=== PATIENT | female | born 1940 | race Caucasian/White ===

== ENCOUNTER 2018-10-12 09:49 | Observation (INO) | payer MEDICARE, OTHER ==
[~2018-10-12] VITALS: Ht 160 cm; Wt 47.6 kg
[2018-10-12] MEDS ORDERED: NS IV 1000 ML 1,000 ML IV STA (10:16)
[2018-10-12 10:21] LABS: HEMATOCRIT 37 % (35-52); HEMOGLOBIN 12.3 G/DL (11.5-16.0); MEAN CORPUSCULAR HEMOGLOBIN 31 PG (25-34); MEAN CORPUSCULAR VOLUME 93 FL (80-99)
[2018-10-12 10:22] LABS: BASOPHILS % (AUTO) 1 % (0-10); EOSINOPHILS # (AUTO) 0.1 10^3/uL (0.0-0.3); EOSINOPHILS % (AUTO) 1 % (0-10); LYMPHOCYTES # (AUTO) 0.7 X 10^3 (1.0-4.0); LYMPHOCYTES % (AUTO) 12 % (12-44); MEAN CORPUSCULAR HGB CONC 33 G/DL (32-36); MEAN PLATELET VOLUME 9.9 FL (7.4-10.4); MONOCYTES # (AUTO) 0.4 X 10^3 (0.0-1.0); MONOCYTES % (AUTO) 7 % (0-12); NEUTROPHILS # (AUTO) 4.7 X 10^3 (1.8-7.8); NEUTROPHILS % (AUTO) 79 % (42-75); PLATELET COUNT 243 10^3/uL (130-400); RED CELL DISTRIBUTION WIDTH 13.7 % (10.0-14.5)
--- NOTE | 2018-10-12 10:22 | ED General ---
General Chief Complaint: Dizziness/Syncope Stated Complaint: WEAK, CONFUSED Source of Information: Patient, EMS History of Present Illness Date Seen by Provider: Oct 12, 2018 Time Seen by Provider: 09:49 Initial Comments 78-year-old female presenting with complaints of dizziness and weakness. She states that she has not been eating or drinking well for several days. She felt like she was too weak to get up and walk today. She lives at [facility] and is in assisted living there. She told the staff that she was too weak to get up and felt that her vision was blurred. They gave her part of a protein bar and some water to drink. By the time she arrived to the emergency department by EMS she was starting to feel better. She still felt like her legs were both weak. She does have chronic swelling in her legs. She denies having pain anywhere. She states that she does have burning to her urine at times. She has no shortness of breath. She cannot tell me when her last bowel movement was. She cannot tell me when she last ate other than the bite of the protein bar just prior to coming to the emergency department Allergies and Home Medications Allergies Coded Allergies: No Known Drug Allergies (Unverified , 10/12/18) Patient Home Medication List Home Medication List Reviewed: Yes Review of Systems Review of Systems Constitutional: No chills; dizziness; No fever; malaise, weakness EENTM: blurred vision (now resolved), other ("cotton mouth" and dry mouth symptoms this am); No ear discharge, No double vision, No eye pain, No hoarseness, No mouth pain, No mouth swelling, No epistaxis, No nose congestion, No throat pain, No throat swelling Respiratory: No cough, No dyspnea on exertion, No short of breath Cardiovascular: No chest pain; edema (chronic); No palpitations Gastrointestinal: No abdominal pain; loss of appetite (chronic issue); No nausea, No vomiting Genitourinary: dysuria (intermittent) Musculoskeletal: No back pain; muscle weakness (bilateral legs) Skin: No change in color Psychiatric/Neurological: Anxiety Hematologic/Lymphatic: Anemia (chronic) Past Ezuigdu-Yznosi-Cquedr Hx Past Med/Social Hx: Reviewed Nursing Past Med/Soc Hx Patient Social History Recent Foreign Travel: No Contact w/Someone Who Travel: No Past Medical History Surgeries: No Dementia (mild) Physical Exam Vital Signs Vital Signs - First Documented 10/12/18 10:17 Temp 98.8 Pulse 88 Resp 21 B/P (MAP) 150/79 (102) Pulse Ox 96 O2 Delivery Room Air Capillary Refill : Height, Weight, BMI Height: '" Weight: lbs. oz. kg; BMI Method: General Appearance: No Apparent Distress, Thin HEENT: PERRL/EOMI, Other (dry mucuous membranes) Neck: Full Range of Motion, Normal Inspection, Non Tender, Supple Respiratory: Chest Non Tender, Lungs Clear, Normal Breath Sounds Cardiovascular: Regular Rate, Rhythm, Normal Peripheral Pulses Gastrointestinal: Normal Bowel Sounds, No Pulsatile Mass, Non Tender, Soft Extremity: Normal Capillary Refill, Normal Inspection, Normal Range of Motion, Non Tender Neurologic/Psychiatric: Alert, Oriented x3, No Motor/Sensory Deficits Skin: Normal Color, Warm/Dry Progress/Results/Core Measures Suspected Sepsis SIRS Temperature: Pulse: Respiratory Rate: Laboratory Tests 10/12/18 10:15: White Blood Count 6.0 Blood Pressure / Mean: Laboratory Tests 10/12/18 10:15: Creatinine 0.88, Platelet Count 243, Total Bilirubin 0.7 Results/Orders Lab Results Laboratory Tests Test 10/12/18 10:15 10/12/18 10:28 Range/Units White Blood Count 6.0 4.3-11.0 10^3/uL Red Blood Count 3.98 L 4.35-5.85 10^6/uL Hemoglobin 12.3 11.5-16.0 G/DL Hematocrit 37 35-52 % Mean Corpuscular Volume 93 80-99 FL Mean Corpuscular Hemoglobin 31 25-34 PG Mean Corpuscular Hemoglobin Concent 33 32-36 G/DL Red Cell Distribution Width 13.7 10.0-14.5 % Platelet Count 243 130-400 10^3/uL Mean Platelet Volume 9.9 7.4-10.4 FL Neutrophils (%) (Auto) 79 H 42-75 % Lymphocytes (%) (Auto) 12 12-44 % Monocytes (%) (Auto) 7 0-12 % Eosinophils (%) (Auto) 1 0-10 % Basophils (%) (Auto) 1 0-10 % Neutrophils # (Auto) 4.7 1.8-7.8 X 10^3 Lymphocytes # (Auto) 0.7 L 1.0-4.0 X 10^3 Monocytes # (Auto) 0.4 0.0-1.0 X 10^3 Eosinophils # (Auto) 0.1 0.0-0.3 10^3/uL Basophils # (Auto) 0.0 0.0-0.1 10^3/uL Sodium Level 143 135-145 MMOL/L Potassium Level 4.1 3.6-5.0 MMOL/L Chloride Level 101 98-107 MMOL/L Carbon Dioxide Level 27 21-32 MMOL/L Anion Gap 15 H 5-14 MMOL/L Blood Urea Nitrogen 21 H 7-18 MG/DL Creatinine 0.88 0.60-1.30 MG/DL Estimat Glomerular Filtration Rate > 60 BUN/Creatinine Ratio 24 Glucose Level 122 H 70-105 MG/DL Calcium Level 9.5 8.5-10.1 MG/DL Corrected Calcium 9.3 8.5-10.1 MG/DL Total Bilirubin 0.7 0.1-1.0 MG/DL Aspartate Amino Transf (AST/SGOT) 23 5-34 U/L Alanine Aminotransferase (ALT/SGPT) 22 0-55 U/L Alkaline Phosphatase 57 40-136 U/L Troponin I < 0.30 <0.30 NG/ML Pro-B-Type Natriuretic Peptide 77.8 H <75.0 PG/ML Total Protein 7.0 6.4-8.2 GM/DL Albumin 4.2 3.2-4.5 GM/DL Urine Color YELLOW Urine Clarity SLT CLOUDY Urine pH 7.5 5-9 Urine Specific [place] 1.015 L 1.016-1.022 Urine Protein NEGATIVE NEGATIVE Urine Glucose (UA) NEGATIVE NEGATIVE Urine Ketones TRACE H NEGATIVE Urine Nitrite NEGATIVE NEGATIVE Urine Bilirubin NEGATIVE NEGATIVE Urine Urobilinogen 0.2 NORMAL MG/DL Urine Leukocyte Esterase NEGATIVE NEGATIVE Urine RBC (Auto) NEGATIVE NEGATIVE Urine RBC RARE /HPF Urine WBC RARE /HPF Urine Squamous Epithelial Cells RARE /HPF Urine Crystals PRESENT H /LPF Urine Amorphous Sediment MOD GREGORIO PHOSPHATE H /LPF Urine Bacteria MODERATE H /HPF Urine Casts NONE /LPF Urine Mucus NONE /LPF Urine Culture Indicated YES My Orders Orders - KHUSHBU ELLINGTON MD Iv/Invasive Line Insertion .IV start (10/12/18 10:11) Cbc With Automated Diff (10/12/18 10:11) Comprehensive Metabolic Panel (10/12/18 10:11) Ua Culture If Indicated (10/12/18 10:11) Straight Cath For Spec.-Adult (10/12/18 10:11) Ekg Tracing (10/12/18 10:11) Troponin I (10/12/18 10:11) Probnp Fs (10/12/18 10:11) Ns Iv 1000 Ml (Sodium Chloride 0.9%) (10/12/18 10:16) Urine Culture (10/12/18 10:28) Ekg Tracing (10/12/18 11:00) Ct Head Wo (10/12/18 11:15) Chest 1 View Ap/Pa Only (10/12/18 11:15) Ceftriaxone For Iv Use (Rocephin For I (10/12/18 11:15) Vital Signs/I&O 10/12/18 10:17 Temp 98.8 Pulse 88 Resp 21 B/P (MAP) 150/79 (102) Pulse Ox 96 O2 Delivery Room Air Capillary Refill : Progress Note #1: Progress Note check basic labs and urine. Will give IVF for hydration as well as let the patient drink fluids. Since she has vague symptoms and is elderly female will also check for cardiac source of her symptoms by doing an ECG to look for abnormal rhythm or ST elevation. Troponin and proBNP to look for acute coronary syndrome or ischemic disease and heart failure. Progress Note #2: Progress Note Labs do not show any acute significant abnormality on her CBC. Her Chemistry shows a mild elevation of her BUN for some dehydration. Her Troponin I is <0.30. Her Urinalysis from catheter specimen is negative for Nitrites/LE but has moderate Bacteria so still may be indicative of a UTI, especially with her having urinary frequency here in the ED and poor hygiene. She has general w eakness and still feels dizzy at times. Will add on Rocephin 1 gm IV for her Bacteria in the urine. Culture is pending. While pt was having some dizziness she had what appeared to be atrial fibrillation or flutter on the monitor so an additional ECG tracing was obtained. The repeat ECG tracing did look like she might have atrial fibrillation or flutter present with a rate around [address] elevation but there was some artifact on the tracing. Will add on CT head to evaluate for signs of acute stroke or bleeding since she was having some confusion, which the staff at [facility] reports to nursing staff is chronic for the patient. Add on CXR as well to look for any overt signs of failure or infection or pathology that might be contributing to a heart arrhythmia and near syncope symptoms. Provided these additional tests look ok will plan to check with provider chief controller center for [facility] about admit to [facility] for her urine infection, generalized weakness and have her get a cardiology consult, IV antibiotics and consider physical therapy. She may also need a higher level of care than just assisted living since she was a 2 person assist to try and get up from bed to bedside commode. Progress Note #3: Time: 12:[address] head did not show any acute abnormality and CXR was clear as well. Will page Dr. Fontanez as the chief controller center provider for [facility] since the patient follows with Hung Rush and see about admit to [facility]. ECG Initial ECG Impression Date: Oct 12, 2018 Initial ECG Impression Time: 10:21 Initial ECG Rate: 78 Initial ECG Rhythm: Normal Sinus Initial ECG Comparisson: No Previous ECG Available Comment Sinus rhythm with a heart rate of 78 beats for minute. OR interval of 148 ms. QT interval of 382 ms and QT corrected interval [address] elevation. No prior tracing immediately available for comparison. EKG : EKG Time: 11:03 Rate: 92 Comment Atrial flutter with predominant 3-1 AV block and a rate of 92 bpm. QT interval 360 ms. QT corrected interval 456 ms. There is no [address] elevation. artifact is present on the tracing. Diagnostic Imaging Diagonstic Imaging: CT Plain Films/CT/US/NM/MRI: head Comments NAME: [facility] REC#: [id number] PT STATUS: REG ER : 1940 PHYSICIAN: KHUSHBU ELLINGTON MD ADMIT DATE: 10/12/18/ER FS Draft Date of Exam:10/12/18 CT HEAD WO PROCEDURE: CT head without contrast. TECHNIQUE: Multiple contiguous axial images were obtained through the brain without the use of intravenous contrast. Auto Exposure Controls were utilized during the CT exam to meet ALARA standards for radiation dose reduction. INDICATION: Confusion and weakness. No previous for comparison. FINDINGS: There is mild colpocephaly noted. There is no evidence of hydrocephalus. There is no shift of midline. There is no intracranial hemorrhage or mass effect. There is associated white matter change along the occipital horns bilaterally. Basal cisterns are clear. CP angles are normal. Mastoid air cells are well-aerated as are the paranasal sinuses with a retention cyst in the left maxillary sinus. No calvarial fracture. IMPRESSION: 1. No acute intracranial abnormalities. 2. 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 3. There is noted a retention cyst in the left maxillary sinus. Dictated on workstation # [id number] Dict: 10/12/18 1201 Trans: 10/12/18 1211 ALBERT [id number] Interpreted by: SARA BANEGAS MD Electronically signed by: Diagonstic Imaging: Xray Plain Films/CT/US/NM/MRI: chest Comments NAME: [facility] REC#: [id number] PT STATUS: REG ER : 1940 PHYSICIAN: KHUSHBU ELLINGTON MD ADMIT DATE: 10/12/18/ER FS Draft Date of Exam:10/12/18 CHEST 1 VIEW AP/PA ONLY INDICATION: Confusion and weakness FINDINGS: A single view of the chest shows normal heart size and vascularity. The lungs are clear. There is no effusion or pneumothorax. There is no bony abnormality. IMPRESSION: No acute abnormality is seen. Dictated on workstation # [id number] Dict: 10/12/18 1208 Trans: 10/12/18 1212 [id number] Interpreted by: RICK LOONEY MD Electronically signed by: Departure Communication (Admissions) Time/Spoke to Admitting Phy: 12:[address] Fontanez, the chief controller center provider for [facility], and discussed her case. He agreed to an observation telemetry admit for the patient. The patient may need more of a higher level of care custodial at discharge or at least more assistance at [facility] if that is available. Impression Primary Impression: Bacteriuria Additional Impressions: Generalized weakness Confusion Dizziness Near syncope Disposition: ADMITTED INPATIENT Condition: Stable Admissions Decision to Admit Reason: Admit from ER (General) Decision to Admit/Date: Oct 12, 2018 Time/Decision to Admit Time: 12:37 Departure-Patient Inst. Referrals: HUNG RUSH APRN (PCP) Primary Care Physician KHUSHBU ELLINGTON MD Oct 12, 2018 10:22
[2018-10-12 10:49] LABS: BACTERIA,URINE MODERATE /HPF; BILIRUBIN,URINE NEGATIVE (NEGATIVE); CLARITY,URINE SLT CLOUDY; COLOR,URINE YELLOW; GLUCOSE, URINE (UA) NEGATIVE (NEGATIVE); KETONES,URINE TRACE (NEGATIVE); LEUKOCYTE ESTERASE ,URINE NEGATIVE (NEGATIVE); NITRITE,URINE NEGATIVE (NEGATIVE); PH,URINE 7.5 (5-9); PROTEIN,URINE NEGATIVE (NEGATIVE); RBC,URINE RARE /HPF; SQUAMOUS EPITHELIAL CELL,UR RARE /HPF; UROBILINOGEN,URINE 0.2 MG/DL (NORMAL); WBC,URINE RARE /HPF
[2018-10-12 10:50] LABS: AMORPHOUS SEDIMENT,UR MOD AMOR PHOSPHATE /LPF
[2018-10-12 10:54] LABS: ALANINE AMINOTRANSFERASE 22 U/L (0-55); ALKALINE PHOSPHATASE 57 U/L (40-136); BILIRUBIN,TOTAL 0.7 MG/DL (0.1-1.0); BUN/CREATININE RATIO 24; CALCIUM 9.5 MG/DL (8.5-10.1); CARBON DIOXIDE 27 MMOL/L (21-32); CHLORIDE 101 MMOL/L (98-107); CREATININE SERUM 0.88 MG/DL (0.60-1.30); GFR ESTIMATED > 60; GLUCOSE 122 MG/DL (70-105); POTASSIUM 4.1 MMOL/L (3.6-5.0); SODIUM 143 MMOL/L (135-145)
[2018-10-12 10:55] LABS: ALBUMIN 4.2 GM/DL (3.2-4.5)
[2018-10-12] MEDS ORDERED: cefTRIAXone FOR IV USE 1,000 MG in WATER (STERILE) FOR INJECTION 10 ML IV STA (11:15)
--- NOTE | 2018-10-12 12:12 | Diagnostic Imaging Report ---
PROCEDURE: CT head without contrast. TECHNIQUE: Multiple contiguous axial images were obtained through the brain without the use of intravenous contrast. Auto Exposure Controls were utilized during the CT exam to meet ALARA standards for radiation dose reduction. INDICATION: Confusion and weakness. No previous for comparison. FINDINGS: There is mild colpocephaly noted. There is no evidence of hydrocephalus. There is no shift of midline. There is no intracranial hemorrhage or mass effect. There is associated white matter change along the occipital horns bilaterally. Basal cisterns are clear. CP angles are normal. Mastoid air cells are well-aerated as are the paranasal sinuses with a retention cyst in the left maxillary sinus. No calvarial fracture. IMPRESSION: 1. No acute intracranial abnormalities. 2. 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 3. There is noted a retention cyst in the left maxillary sinus. Dictated by: Dictated on workstation # [id number]
--- NOTE | 2018-10-12 12:12 | Diagnostic Imaging Report ---
INDICATION: Confusion and weakness FINDINGS: A single view of the chest shows normal heart size and vascularity. The lungs are clear. There is no effusion or pneumothorax. There is no bony abnormality. IMPRESSION: No acute abnormality is seen. Dictated by: Dictated on workstation # [id number]
--- NOTE | 2018-10-12 14:02 | NUR ---
REPORT RECEIVED FROM MISHA GARCIA IN [facility]. WILL ASSUME CARE OF PATIENT WHEN ARRIVES TO FLOOR.
--- NOTE | 2018-10-12 14:50 | NUR ---
PT ARRIVED TO FLOOR VIA STRETCHER BY EMS FROM [facility]. A/O, ABLE TO ANSWER QUESTIONS APPROPRIATELY BUT RAMBLES WHEN ASKED QUESTIONS. X1 ASSIST TO BSC PT IS UNSTEADY AND WEAK ON FEET. +3 EDEMA NOTED TO BILATERAL LOWER EXTREMITIES. NO SKIN ISSUES NOTED. UNABLE TO REPORT WHEN LAST BM WAS. PT WAS PLACED IN GOWN UPON ARRIVAL AND HAS STRONG BODY ODOR. PER ED NURSE PATIENT YANNA AREA WAS UNCLEAN WITH OLD BM PRESENT. ADMISSION EDUCATION GONE OVER WITH PT. RIGHT AC IV INTACT. MEDICAL ALERT NECKLACE LOCKED IN MANUFACTURING ELECTRICIAN ROOM. ORIENTED PT TO ROOM, CALL LIGHT WITHIN REACH. PT FALL RISK WITH NON SLIP SOCKS APPLIED AND BED ALARM TURNED ON. SCD'S APPLIED
[2018-10-12 15:03] VITALS: BP 145/69
[2018-10-12] MEDS: NS IV 1000 ML 1,000 ML IV SCH (16:21)
[2018-10-12 17:02] VITALS: BP 145/69
[2018-10-12] MEDS ORDERED: VIT1TAB.9 PO (19:24)
[2018-10-12] MEDS ORDERED: OMEG-109 PO (19:24)
[2018-10-12 20:33] VITALS: BP 126/75
[2018-10-13] VITALS: BP 152/70
[2018-10-13 04:00] VITALS: BP 132/71
[2018-10-13] MEDS: NS IV 1000 ML 1,000 ML IV SCH (07:07)
[2018-10-13 08:05] VITALS: BP 157/80
[2018-10-13] MEDS ORDERED: MULT1TAB69 PO (08:41)
[2018-10-13] MEDS ORDERED: ALEN70TA5 PO (08:41)
[2018-10-13] MEDS ORDERED: CHOL200078 PO (08:41)
[2018-10-13] MEDS ORDERED: MAGN250T13 PO (08:41)
[2018-10-13] MEDS ORDERED: VIT1TABL26 PO (08:41)
[2018-10-13] MEDS ORDERED: CALC-308 PO (08:41)
[2018-10-13] MEDS ORDERED: VIT1CAPS44 PO (08:41)
[2018-10-13] MEDS ORDERED: CARB10DR2 OU (08:41)
[2018-10-13] MEDS ORDERED: MAGN400O7 PO (08:41)
[2018-10-13] MEDS ORDERED: PRED5DRO17 OD (08:47)
--- NOTE | 2018-10-13 08:49 | NUR ---
UPDATED MED REC WITH PHYSICIAN'S ORDERS FROM [facility].
[2018-10-13] MEDS: cefTRIAXone 1,000 MG/SWFI 10 ML IV PUSH IV SCH ×2 (10:52)
[2018-10-13 12:28] VITALS: BP 114/67
--- NOTE | 2018-10-13 12:58 | Physical Therapy Evaluation ---
PT Evaluation-General Medical Diagnosis Admission Date Oct 12, 2018 at 12:37 Medical Diagnosis: near syncope/bacteruria/generalized weakness Onset Date: Oct 12, 2018 Therapy Diagnosis Therapy Diagnosis: debility/weakness Height/Weight Height (Feet): 5 Height (Inches): 3.00 Weight (Pounds): 105 Weight (Ounces): 0.0 Precautions Precautions/Isolations: Fall Prevention, Standard Precautions Weight Bear Status Right Lower Extremity: Right Weight Bearing/Tolerated Left Lower Extremity: Left Weight Bearing/Tolerated Referral Physician: April Reason for Referral: Evaluation/Treatment Medical History Pertinent Medical History: Dementia Current History ER secondary to not eating or drinking for several days and feeling weak and con fused Reviewed History: Yes Social History Home: Assisted Living Prior/Core FIM Prior Level of Function Therapy Code Descriptions/Definitions Functional [place] Measure: 0=Not Assessed/NA 4=Minimal Assistance 1=Total Assistance 5=Supervision or Setup 2=Maximal Assistance 6=Modified [place] 3=Moderate Assistance 7=Complete [place] Therapy Quality Codes: 6 Independent with activity with or without an assistive device 5 Patient requires set up or clean up by helper. Patient completes activity by themselves 4 Supervision or touching assist (CGA). [place] provide cues , steadying assist 3 The helper provides less than half the effort to complete the activity 2 The helper provides more than half the effort to complete the activity 1 Dependent. The helper does all the effort to complete an activity 7 Patient refused to complete or attempt activity 9 The patient did not perform the activity before the current illness or injury 88 Not attempted due to Medical conditions or safety concerns Functional Abilities and Goals: Independent: Patient completed the activities by him/herself, with or without an assistive device, with no assistance from a helper. Needed Some Help: Patient needed partial assistance from another person to complete activities. Dependent: A helper completed the activities for the patient. Unknown: Not Applicable: Bed Mobility: 4 Transfers (B,C,W/C) (FIM): 4 Gait: 4 Indoor Mobility (Ambulation): Needed Some Help Stairs: Not Applicalbe Prior Devices Use: Walker PT Evaluation-Current Subjective Patient is severely leaning to right with inability to self correct. Patient appears very confused and unable to follow simple direction. Pain Numeric Pain Scale: 0-No Pain Location: No Pain Reported Objective Patient Orientation: Confused Problem Solving: Poor ROM/Strength ROM Lower Extremities bilateral LE WFL Strength Lower Extremities 3-/5 grossly bilaterally (unable to formally test due to confusion) Integumentary/Posture Integumentary refer to nursing notes Bowel Incontinence: Yes Bladder Incontinence: Yes Posture severe lean to right Neuromuscular (Tone, Coordination, Reflexes) very rigid posturing (Parkinson's like presence with rigid ROM, flat affect, etc.) Sensory Vision: Functional Hearing: Functional Sensation Right Lower Extremit: Impaired Sensation Left Lower Extremity: Impaired Transfers Therapy Code Descriptions/Definitions Functional [place] Measure: 0=Not Assessed/NA 4=Minimal Assistance 1=Total Assistance 5=Supervision or Setup 2=Maximal Assistance 6=Modified [place] 3=Moderate Assistance 7=Complete [place] Transfers (B, C, W/C) (FIM): 1 Scootin Supine to/from Sit: 1 Sit to/from Stand: 1 bed t/f WC(FIM only if WC use): 1 dependent with severe retropulsion and right lean with inability to self correct or correct with tactile and verbal cueing. Balance Sitting Static: Poor Sitting Dynamic: Poor Standing Static: Poor Standing Dynamic: Poor Assessment/Needs 78 y.o. female, is severely debilitated and unable to sit or stand unassisted. She c/o dizziness and urgency to urinate. PT to address functional strength and mobility to improve current LOF Currently, from a PT standpoint, patient would benefit from extended care facility for continued care due to extreme debility and dependent assistance. Rehab Potential: Fair PT Fdc Goals Fdc Goals PT Aquatics Director Goals Time Frame: Oct 25, 2018 Transfers (B,C,W/C) (FIM): 4 Gait (FIM): 1 Gait distance (FIM): 1=up to 49 ft Distance: 45' Gait Level of Assist: 4 Gait Assistive Device: FWW PT Plan Problem List Problem List: Activity Tolerance, Functional Strength, Safety, Balance, Gait, Transfer, Bed Mobility Treatment/Plan Treatment Plan: Continue Plan of Care Treatment Plan: Bed Mobility, Education, Functional Activity Pravin, Functional Strength, Gait, Safety, Therapeutic Exercise, Transfers Treatment Duration: Oct 25, 2018 Frequency: 6 times per week Estimated Hrs Per Day: .25 hour per day Patient and/or Family Agrees t: Yes Discharge Recommendations Therapy D/C Recommendations: Assisted Living, Fpc Placement, Halfway (TCU/NH) Time/GCodes Time In: 1120 Time Out: 1141 Total Billed Treatment Time: 21 Total Billed Treatment 1 visit [facility] 21 min EMILI HECK PT Oct 13, 2018 12:58
--- NOTE | 2018-10-13 13:36 | History & Physical ---
HPI History of Present Illness: 78 yo F that lives in assisted living that has been declining steadily. States that she has just not had an appetite and just has been feeling weaker. Denies any chest pain, shortness of breath, N/V or fever. Denies any recent falls. States that she was up walking with walker [address] in ER. Source: patient, RN/MD Exam Limitations: no limitations Date seen by provider: Oct 13, 2018 Time Seen by Provider: 10:00 Attending Physician Katie Chen MD PCP Linda Posada Aprn Consult Date of Admission Oct 12, 2018 at 12:37 Home Medications Home Medications Reviewed patient Home Medication Reconciliation performed by pharmacy medication reconciliations heavy line technician and/or nursing. Patients Allergies have been reviewed. Allergies Coded Allergies: No Known Drug Allergies (Unverified , 10/12/18) IHR-Bhmyaj-Yuohba Hx Patient Social History Living Status: Assisted Living Alcohol Use: Denies Use Recreational Drug Use: No Smoking Status: Never a Smoker 2nd Hand Smoke Exposure: No Recent Foreign Travel: No Contact w/other who traveled: No Recent Hopitalizations: No Recent Infectious Disease Expo: No Past Medical History Osteoporosis Review of Systems ([facility]) Constitutional: No chills, No fever; malaise, weakness EENTM: no symptoms reported; No nose congestion Respiratory: no symptoms reported; No cough, No dyspnea on exertion, No short of breath Cardiovascular: No chest pain; edema; No palpitations Gastrointestinal: No abdominal pain; loss of appetite; No nausea, No vomiting Genitourinary: incontinence Musculoskeletal: no symptoms reported Skin: no symptoms reported Psychiatric/Neurological: No Symptoms Reported Reviewed Test Results Reviewed Test Results Lab Laboratory Tests Test 10/12/18 10:15 10/12/18 10:28 Range/Units White Blood Count 6.0 4.3-11.0 10^3/uL Red Blood Count 3.98 L 4.35-5.85 10^6/uL Hemoglobin 12.3 11.5-16.0 G/DL Hematocrit 37 35-52 % Mean Corpuscular Volume 93 80-99 FL Mean Corpuscular Hemoglobin 31 25-34 PG Mean Corpuscular Hemoglobin Concent 33 32-36 G/DL Red Cell Distribution Width 13.7 10.0-14.5 % Platelet Count 243 130-400 10^3/uL Mean Platelet Volume 9.9 7.4-10.4 FL Neutrophils (%) (Auto) 79 H 42-75 % Lymphocytes (%) (Auto) 12 12-44 % Monocytes (%) (Auto) 7 0-12 % Eosinophils (%) (Auto) 1 0-10 % Basophils (%) (Auto) 1 0-10 % Neutrophils # (Auto) 4.7 1.8-7.8 X 10^3 Lymphocytes # (Auto) 0.7 L 1.0-4.0 X 10^3 Monocytes # (Auto) 0.4 0.0-1.0 X 10^3 Eosinophils # (Auto) 0.1 0.0-0.3 10^3/uL Basophils # (Auto) 0.0 0.0-0.1 10^3/uL Sodium Level 143 135-145 MMOL/L Potassium Level 4.1 3.6-5.0 MMOL/L Chloride Level 101 98-107 MMOL/L Carbon Dioxide Level 27 21-32 MMOL/L Anion Gap 15 H 5-14 MMOL/L Blood Urea Nitrogen 21 H 7-18 MG/DL Creatinine 0.88 0.60-1.30 MG/DL Estimat Glomerular Filtration Rate > 60 BUN/Creatinine Ratio 24 Glucose Level 122 H 70-105 MG/DL Calcium Level 9.5 8.5-10.1 MG/DL Corrected Calcium 9.3 8.5-10.1 MG/DL Total Bilirubin 0.7 0.1-1.0 MG/DL Aspartate Amino Transf (AST/SGOT) 23 5-34 U/L Alanine Aminotransferase (ALT/SGPT) 22 0-55 U/L Alkaline Phosphatase 57 40-136 U/L Troponin I < 0.30 <0.30 NG/ML Pro-B-Type Natriuretic Peptide 77.8 H <75.0 PG/ML Total Protein 7.0 6.4-8.2 GM/DL Albumin 4.2 3.2-4.5 GM/DL Urine Color YELLOW Urine Clarity SLT CLOUDY Urine pH 7.5 5-9 Urine Specific [place] 1.015 L 1.016-1.022 Urine Protein NEGATIVE NEGATIVE Urine Glucose (UA) NEGATIVE NEGATIVE Urine Ketones TRACE H NEGATIVE Urine Nitrite NEGATIVE NEGATIVE Urine Bilirubin NEGATIVE NEGATIVE Urine Urobilinogen 0.2 NORMAL MG/DL Urine Leukocyte Esterase NEGATIVE NEGATIVE Urine RBC (Auto) NEGATIVE NEGATIVE Urine RBC RARE /HPF Urine WBC RARE /HPF Urine Squamous Epithelial Cells RARE /HPF Urine Crystals PRESENT H /LPF Urine Amorphous Sediment MOD GREGORIO PHOSPHATE H /LPF Urine Bacteria MODERATE H /HPF Urine Casts NONE /LPF Urine Mucus NONE /LPF Urine Culture Indicated YES Physical Exam-([facility]) Physical Exam Vital Signs VS - Last 72 Hours, by Label 10/12/18 10/12/18 10/12/18 10/12/18 10:17 14:06 14:49 15:03 Temp 98.8 98.0 97.7 Pulse 88 89 85 Resp 21 16 18 B/P (MAP) 150/79 (102) 125/59 (81) 145/69 (94) Pulse Ox 96 97 96 96 O2 Delivery Room Air Room Air Room Air Room Air 10/12/18 10/12/18 10/12/18 10/12/18 16:37 17:02 19:00 20:00 Temp 97.7 Pulse 92 85 85 Resp 18 B/P (MAP) 145/69 Pulse Ox 96 O2 Delivery Room Air Room Air 10/12/18 10/13/18 10/13/18 10/13/18 20:33 00:00 01:00 04:00 Temp 98.9 99.2 99.1 Pulse 85 81 68 72 Resp 20 18 18 B/P (MAP) 126/75 (92) 152/70 (97) 132/71 (91) Pulse Ox 96 98 97 O2 Delivery Room Air Room Air Room Air 10/13/18 10/13/18 10/13/18 10/13/18 07:00 08:00 08:05 12:28 Temp 99.1 98.6 Pulse 87 84 85 Resp 18 20 B/P (MAP) 157/80 (105) 114/67 (83) Pulse Ox 97 98 O2 Delivery Room Air Room Air Room Air 10/13/18 12:43 Pulse 88 Capillary Refill : Less Than 3 Seconds General Appearance: no apparent distress, thin, other (Right side leaning) HEENT: PERRL/EOMI Neck: non-tender, full range of motion, supple Respiratory: chest non-tender, lungs clear, normal breath sounds, no respiratory distress, no accessory muscle use Cardiovascular: normal peripheral pulses, regular rate, rhythm, no murmur Gastrointestinal: normal bowel sounds, non tender, soft Extremities: no calf tenderness, pedal edema (2+ pitting edema in feet bilaterally) Neurologic/Psychiatric: alert, normal mood/affect Skin: normal color, warm/dry Lymphatic: no adenopathy Assessment/Plan Assessment/Plan Admission Status: Observation (1) Bacteriuria Status: Acute Assessment & Plan: - Continue Rocephin, D/c IVFs (2) Generalized weakness Status: Acute Assessment & Plan: - PT/OT Clinical Quality Measures DVT/VTE Risk/Contraindication: Risk Factor Score Per Nursin RFS Level Per Nursing on Admit: 4+=Very High Copy Copies To 1: Linda LINARES APRN GAULT, HOLLY R MD Oct 13, 2018 13:36
--- NOTE | 2018-10-13 13:50 | NUR ---
Pastoral care visit.
--- NOTE | 2018-10-13 14:36 | Occupational Therapy Eval ---
OT Evaluation-General/PLF Medical Diagnosis Admission Date Oct 12, 2018 at 12:37 Medical Diagnosis: near syncope/bacteruria/generalized weakness Onset Date: Oct 12, 2018 Therapy Diagnosis Therapy Diagnosis: impaired ADLs and mobility Height/Weight Height (Feet): 5 Height (Inches): 3.00 Weight (Pounds): 105 Weight (Ounces): 0.0 Precautions Precautions/Isolations: Fall Prevention, Standard Precautions Safety Interventions: None Weight Bear Status Weight Bearing Restriction: Weight Bearing/Tolerated Referral Physician: April Referral Reason: Activity Tolerance, Self Care, Evaluation/Treatment, Strengthening/ROM Medical History Pertinent Medical History: Dementia Additional Medical History f"emale presenting with complaints of dizziness and weakness. She states that she has not been eating or drinking well for several days. She felt like she was too weak to get up and walk today. She lives at [facility] and is in assisted living there. She told the staff that she was too weak to get up and felt that her vision was blurred. They gave her part of a protein bar and some water to drink. By the time she arrived to the emergency department by EMS she was starting to feel better. She still felt like her legs were both weak. She does have chronic swelling in her legs. She denies having pain anywhere. She states that she does have burning to her urine at times. She has no shortness of breath. She cannot tell me when her last bowel movement was. She cannot tell me when she last ate other than the bite of the protein bar just prior to coming to the emergency department" Current History Dementia (mild) Social History Home: Assisted Living Entry Into Home: Level Entry ADL-Prior Level of Function Therapy Code Descriptions/Definitions Functional [place] Measure: 0=Not Assessed/NA 4=Minimal Assistance 1=Total Assistance 5=Supervision or Setup 2=Maximal Assistance 6=Modified [place] 3=Moderate Assistance 7=Complete [place] Therapy Quality Codes: 6 Independent with activity with or without an assistive device 5 Patient requires set up or clean up by helper. Patient completes activity by themselves 4 Supervision or touching assist (CGA). [place] provide cues , steadying assist 3 The helper provides less than half the effort to complete the activity 2 The helper provides more than half the effort to complete the activity 1 Dependent. The helper does all the effort to complete an activity 7 Patient refused to complete or attempt activity 9 The patient did not perform the activity before the current illness or injury 88 Not attempted due to Medical conditions or safety concerns Functional Abilities and Goals: Independent: Patient completed the activities by him/herself, with or without an assistive device, with no assistance from a helper. Needed Some Help: Patient needed partial assistance from another person to complete activities. Dependent: A helper completed the activities for the patient. Unknown: Not Applicable: ADL PLOF Comments pt poor historian Self Care: Unknown Functional Cognition: Unknown Drive Self: No OT Current Status Subjective pt sitting in recliner chair upon OT arrival. pt stated "I peed myself" OT assist with toileting. pt c/o no pain. Mental Status/Objective Patient Orientation: Person Current Glasses/Contacts: Yes Hearing Aids: No Dentures/Partials: No Hand Dominance: Right Upper Extremity ROM WNL noted deformity in left hand. pt stated this was related to a kitchen accident in Upper Extremity Coordination decrease opposition and finger to nose test. Upper Extremity Sensation WNL light touch Upper Extremity Strength 3+/5 MMT ADL-Treatment Therapy Code Descriptions/Definitions Functional [place] Measure: 0=Not Assessed/NA 4=Minimal Assistance 1=Total Assistance 5=Supervision or Setup 2=Maximal Assistance 6=Modified [place] 3=Moderate Assistance 7=Complete [place] Therapy Quality Codes: 6 Independent with activity with or without an assistive device 5 Patient requires set up or clean up by helper. Patient completes activity by themselves 4 Supervision or touching assist (CGA). [place] provide cues , steadying assist 3 The helper provides less than half the effort to complete the activity 2 The helper provides more than half the effort to complete the activity 1 Dependent. The helper does all the effort to complete an activity 7 Patient refused to complete or attempt activity 9 The patient did not perform the activity before the current illness or injury 88 Not attempted due to Medical conditions or safety concerns Eating (FIM): 5 Grooming (FIM): 5 Toileting (FIM): 1 Transfers (B, C, W/C) (FIM): 1 Toilet/Commode Transfer (FIM): 1 pt required TA for toileting and functional transfers. noted pt has severe right lateral lean and retropulsive upon standing. pt required TA to maintain static standing balance while 2nd person assist with pt hygiene. pt required hand over hand assist to for proper positioning of ayana hands on RW . Education OT Patient Education: Modified ADL techniques, Progress toward Goal/Update tx plan, Purpose of tx/functional activities, Reviewed precautions, Safety issues, Transfer techniques Teaching Recipient: Patient Teaching Methods: Demonstration, Discussion Response to Teaching: Reinforcement Needed OT Short Term Goals Short Term Goals Eating(FIM): 5 Grooming(FIM): 5 Bathing(FIM): 4 Lower Body Dressing(FIM): 3 Toileting(FIM): 3 Transfers (B,C,W/C) (FIM): 3 Toilet/Commode Transfer(FIM): 3 1=Demonstrate adherence to instructed precautions during ADL tasks. 2=Patient will verbalize/demonstrate understanding of assistive devices/modifications for ADL. 3=Patient will improve strength/tolerance for activity to enable patient to perform ADL's. OT Gripper Attacher Goals Assisted Goals Time Frame: Nov 03, 2018 Eating (FIM): 6 Grooming(FIM): 6 Lower Body Dressing(FIM): 5 Toileting(FIM): 5 Transfers (B,C,W/C) (FIM): 5 Toilet/Commode Transfer(FIM): 5 Additional Goals: 1-Demonstrate ADL Tasks, 2-Verbalize Understanding, 3- ImproveStrength/Pravin 1=Demonstrate adherence to instructed precautions during ADL tasks. 2=Patient will verbalize/demonstrate understanding of assistive devices/modifi cations for ADL. 3=Patient will improve strength/tolerance for activity to enable patient to perform ADL's. OT Education/Plan Problem List/Assessment Assessment: Decreased Activ Tolerance, Decreased Safety Aware, Decreased UE Strength, Dependent Transfers, Impaired Bed Mobility, Impaired Cognition, Impaired Coordination, Impaired Funct Balance, Impaired I ADL's, Impaired Self- Care Skills pt presents with functional limitations affecting areas of ADLs and functional transfers with deficits in the above mention. noted pt has strong right lateral lean both in sitting and stanidng along with severe retropulsive while standing and inability to self correct. pt would benefit from OT services to increase independence with ADLS and functional transfers. recommended d/c SNF Discharge Recommendations Plan/Recommendations: Continue POC Therapy D/C Recommendations: 24 hr Supervision, Care Home (TCU/NH) Target Placement SNF Treatment Plan/Plan of Care Treatment,Training & Education: Yes Patient would benefit from OT for education, treatment and training to promote independence in ADL's, mobility, safety and/or upper extremity function for ADL's. Plan of Care: ADL Retraining, Caregiver Training, Functional Mobility, Group Exercise/Act as Ind, UE Funct Exercise/Act Treatment Duration: Nov 03, 2018 Frequency: 5 times per week Estimated Hrs Per Day: .25 hour per day Agreement: Yes Rehab Potential: Fair Time/GCodes Start Time: 13:55 Stop Time: 14:20 Billed Treatment Time EVM 15 minutes ADL 10 minutes, 1 unit CHARISMA COX OT Oct 13, 2018 14:36
--- NOTE | 2018-10-13 15:04 | NUR ---
CM/SS spoke with RN at [facility], where patient had been residing. She was requiring assistance with ADLs. Patient had been able to dress herself and get breakfast and evening meal on her own. RN from facility stated that last week patient became more confused. Patient had been on a lower level of care and they have room to move her up on the care she is in need of and still have her at the [facility] facility. If she returns there they would ask for C PT/OT.
[2018-10-13 15:38] VITALS: BP 109/66
[2018-10-13 19:41] VITALS: BP 116/70
[2018-10-14] VITALS: BP 97/61
[2018-10-14 04:00] VITALS: BP 118/76
[2018-10-14 05:27] LABS: BASOPHILS % (AUTO) 0 % (0-10); EOSINOPHILS # (AUTO) 0.1 10^3/uL (0.0-0.3); EOSINOPHILS % (AUTO) 1 % (0-10); HEMATOCRIT 35 % (35-52); HEMOGLOBIN 11.6 G/DL (11.5-16.0); LYMPHOCYTES # (AUTO) 0.7 X 10^3 (1.0-4.0); LYMPHOCYTES % (AUTO) 9 % (12-44); MEAN CORPUSCULAR HEMOGLOBIN 30 PG (25-34); MEAN CORPUSCULAR HGB CONC 33 G/DL (32-36); MEAN CORPUSCULAR VOLUME 92 FL (80-99); MEAN PLATELET VOLUME 10.3 FL (7.4-10.4); MONOCYTES # (AUTO) 0.7 X 10^3 (0.0-1.0); MONOCYTES % (AUTO) 10 % (0-12); NEUTROPHILS # (AUTO) 5.5 X 10^3 (1.8-7.8); NEUTROPHILS % (AUTO) 79 % (42-75); PLATELET COUNT 229 10^3/uL (130-400); RED CELL DISTRIBUTION WIDTH 13.7 % (10.0-14.5)
[2018-10-14 05:45] LABS: BUN/CREATININE RATIO 27; CALCIUM 9.3 MG/DL (8.5-10.1); CARBON DIOXIDE 26 MMOL/L (21-32); CHLORIDE 108 MMOL/L (98-107); CREATININE SERUM 0.77 MG/DL (0.60-1.30); GFR ESTIMATED > 60; GLUCOSE 103 MG/DL (70-105); POTASSIUM 4.1 MMOL/L (3.6-5.0); SODIUM 143 MMOL/L (135-145)
[2018-10-14 08:00] VITALS: BP 109/56
[2018-10-14] MEDS ORDERED: MAGNESIUM OXIDE (MAG-OX)400 MG TAB PO SCH (08:00)
--- NOTE | 2018-10-14 09:21 | Physical Therapy Daily Note ---
PT Daily Note-Current Subjective Patient is much more alert and functional on this date. Mental Status Patient Orientation: Person, Time, Situation Transfers Therapy Code Descriptions/Definitions Functional [place] Measure: 0=Not Assessed/NA 4=Minimal Assistance 1=Total Assistance 5=Supervision or Setup 2=Maximal Assistance 6=Modified [place] 3=Moderate Assistance 7=Complete [place] Therapy Quality Codes: 6 Independent with activity with or without an assistive device 5 Patient requires set up or clean up by helper. Patient completes activity by themselves 4 Supervision or touching assist (CGA). [place] provide cues , steadying assist 3 The helper provides less than half the effort to complete the activity 2 The helper provides more than half the effort to complete the activity 1 Dependent. The helper does all the effort to complete an activity 7 Patient refused to complete or attempt activity 9 The patient did not perform the activity before the current illness or injury 88 Not attempted due to Medical conditions or safety concerns Transfers (B, C, W/C) (FIM): 4 Scootin Sit to/from Stand: 4 Weight Bearing Right Lower Extremity: Right Weight Bearing/Tolerated Left Lower Extremity: Left Weight Bearing/Tolerated Gait Training Gait (FIM): 2 Distance (FIM): 1=259-68 ft Distance: 100' Gait Level of Assist: 4 Gait Assistive Device: FWW slight lean to right with self correct/slow, shuffle gait sequence Exercises Seated Therapy Exercises: Ankle pumps, Long arc quads, Hip flexion Seated Reps: 12 (2 sets) Assessment Patient much improved on this date and remains up in recliner with needs met. SW notified of progress. PT Short Term Goals Short Term Goals Transfers (B,C,W/C) (FIM): 3 PT Residential Solar Consultant Goals Nursing Home Goals PT Nursing Home Goals Time Frame: Oct 25, 2018 Transfers (B,C,W/C) (FIM): 4 Gait (FIM): 1 Gait distance (FIM): 1=up to 49 ft Distance: 45' Gait Level of Assist: 4 Gait Assistive Device: FWW PT Plan Treatment/Plan Treatment Plan: Continue Plan of Care Treatment Plan: Bed Mobility, Education, Functional Activity Pravin, Functional Strength, Gait, Safety, Therapeutic Exercise, Transfers Treatment Duration: Oct 25, 2018 Frequency: 6 times per week Estimated Hrs Per Day: .25 hour per day Patient and/or Family Agrees t: Yes Time/GCodes Time In: 852 Time Out: 915 Total Billed Treatment Time: 23 Total Billed Treatment 1 visit EX 8 min GT 15 min EMILI HECK PT Oct 14, 2018 09:21
--- NOTE | 2018-10-14 11:08 | Discharge Summary ---
Diagnosis/Chief Complaint Date of Admission Oct 12, 2018 at 12:37 Date of Discharge 10/14/2018 Admission Diagnosis Admission Diagnosis Bacteriuria Generalize Weakness Debility Discharge Diagnosis See Above Problems/Diagnosis: (1) Bacteriuria Assessment & Plan: - Continue Rocephin, D/c IVFs 10/14:Patient improving but needing higher level of care at facility, she needs help with cooking and some ADLs, d/c to complete PO antibiotics to treat UTI, culture pending Status: Acute (2) Generalized weakness Assessment & Plan: - PT/OT 10/14: d/c with for nursing, PT/OT Status: Acute Chief Complaint/HPI Chief Complaint/HPI 78 yo F that lives in assisted living that has been declining steadily. States that she has just not had an appetite and just has been feeling weaker. Denies any chest pain, shortness of breath, N/V or fever. Denies any recent falls. States that she was up walking with walker [address] in ER. Discharge Summary-Simple/Stand Consultations Discharge Physical Examination Allergies: Coded Allergies: No Known Drug Allergies (Unverified , 10/12/18) Vitals & I&Os Vital Sign - Last 12Hours Date Time Temp Pulse Resp B/P (MAP) Pulse Ox O2 Delivery O2 Flow Rate FiO2 10/14/18 08:48 Room Air 10/14/18 08:00 98.9 85 16 109/56 (73) 99 Intake and Output 10/14/18 00:00 Intake Total 1077 ml Balance 1077 ml General Appearance: Alert, Cooperative, No Acute Distress HEENT: Mucous Memb Moist/[place] Respiratory: Clear to Auscultation, Normal Air Movement Cardiovascular: Regular Rate, No Murmurs Abdominal: Normal Bowel Sounds, Soft, No Tenderness, No Masses Extremities: No Tenderness/Swelling, Other (2+ pitting edema in feet bilaterally) Skin: No Rashes, No Breakdown Neuro: Sensation Intact, Cranial Nerves 3-12 NL, Other (strength 3/5 LE bilaterally, needs assistance with sit to stand and transfers) Psych/Mental Status: Mental Status NL, Mood NL Hospital Course Was the Problem List Reviewed?: Yes See final discharge diagnosis. Pending Labs Urine culture Discussion & Recommendations 78 yo F that has had a gradual decline. Having truncal weakness and leaning to right. Needing assistance with ADLs and cooking. Treating for possible UTI. Patient feeding self but now incontinent of bladder. Will d/c home with HH for nursing, PT/OT. Discharge Condition at discharge poor prognosis Instructions to patient/family Please see electronic discharge instructions given to patient. Discharge Medications Reviewed and agree with Discharge Medication list on patient's Discharge Instruction sheet Clinical Quality Measures DVT/VTE Risk/Contraindication: Risk Factor Score Per Nursin RFS Level Per Nursing on Admit: 4+=Very High Copy Copies To 1: Linda LINARES, LEE SCOTT MD Oct 14, 2018 11:08
[2018-10-14] MEDS ORDERED: CEFD300C3 PO (11:10)
--- NOTE | 2018-10-14 11:16 | D/C HH Face to Face Order ---
D/C Face to Face Orders Reconcile Patient Problems Problems Reviewed?: Yes Instructions for Patient Via [employer], Patient Instructions/FollowUp: F.u with Linda Posada in 1-2 weeks Physician to follow Patient: Yolanda Johns Discharge Diet for Home: Dysphagia Patient Problems: UTI Generalize Weakness Debility Goals for Patient: - Improvement on ADLs - Ambulation and transfers Patient Data-Allergies,Ht & Wt Patient Allergies: Coded Allergies: No Known Drug Allergies (Unverified , 10/12/18) Height (Feet): 5 Height (Inches): 3.00 Weight (Pounds): 105 Weight (Ounces): 0.0 Home Health Need/Face to Face Date of Face to Face: Oct 14, 2018 Clinical Findings: Generalized weakness and fatigue, Instability, Muscle weakness, Non or partial weight bearing, Unsteady gait I have seen Pt [id number]: Yes Discharged To: Other (Assisted Living) Diagnosis/Conditions: UTI Generalized Weakness Debility Dementia Patient is Homebound due to: CognItive deficits, Garret fall risk due to instabilty, Muscle weakness Homebound Status Due to the above stated illness, injury or surgical procedure (medical condition or diagnosis) and associated clinical findings, the patient is homebound because of his/her inability to leave home except with aid of a supportive device and/or person AND leaving the home requires a considerable and taxing effort or is medically contraindicated. Pt req the following assistanc: Aid of another person, Walker Home Health Nursing Orders Home Health Services Order: Nursing Services, Mud Plant Operator-Evaluate & Treat, Physical Therapy-Evaluate & Treat Home Health Infusion Therapy Line Start Date: Oct 12, 2018 Therapy Orders Therapy Orders: OT (must have SN or PT order), Physical Therapy, PT to assess for OT Therapy Specific Orders: Eval assistive deivces, Teach strategies/cognitive deficits, Teach enviro modifications/safety, Increase strength/endurance Certify Stmt I certify that this patient is under my care and that I, a nurse practitioner or a physician; a visitor use assistant working with me, had a face to face encounter that - meets the physician face to face encounter requirements with this patient as dated. LEE ULLOA MD Oct 14, 2018 11:16
--- NOTE | 2018-10-14 11:26 | Occupational Ther Daily Note ---
OT Current Status-Daily Note Subjective Pt in bed, agrees to therapy. Pt reports being "sore", but does not rate pain. Mental Status/Objective Therapy Code Descriptions/Definitions Functional [place] Measure: 0=Not Assessed/NA 4=Minimal Assistance 1=Total Assistance 5=Supervision or Setup 2=Maximal Assistance 6=Modified [place] 3=Moderate Assistance 7=Complete [place] ADL-Treatment Pt able to bring bilateral LE to EOB with increased time and cues, required min assist for upper body during supine to sit. Pt sit to stand with min assist. Pt initially retropulsive, requires assist to correct. Transfer to [facility]. Pt was incontinent of urine in brief. Assist to complete hygiene and don new brief. Pt transferred to chair with mod assist and skilled cues for safety. Positioned in chair with needs met and RN present after session. Therapy Code Descriptions/Definitions Functional [place] Measure: 0=Not Assessed/NA 4=Minimal Assistance 1=Total Assistance 5=Supervision or Setup 2=Maximal Assistance 6=Modified [place] 3=Moderate Assistance 7=Complete [place] Therapy Quality Codes: 6 Independent with activity with or without an assistive device 5 Patient requires set up or clean up by helper. Patient completes activity by themselves 4 Supervision or touching assist (CGA). [place] provide cues , steadying assist 3 The helper provides less than half the effort to complete the activity 2 The helper provides more than half the effort to complete the activity 1 Dependent. The helper does all the effort to complete an activity 7 Patient refused to complete or attempt activity 9 The patient did not perform the activity before the current illness or injury 88 Not attempted due to Medical conditions or safety concerns Toileting (FIM): 1 Toileting Hygiene (QC): 1 Toilet/Commode Transfer (FIM): 3 OT Short Term Goals Short Term Goals Eating(FIM): 5 Grooming(FIM): 5 Bathing(FIM): 4 Lower Body Dressing(FIM): 3 Toileting(FIM): 3 Transfers (B,C,W/C) (FIM): 3 Toilet/Commode Transfer(FIM): 3 1=Demonstrate adherence to instructed precautions during ADL tasks. 2=Patient will verbalize/demonstrate understanding of assistive devices/modifications for ADL. 3=Patient will improve strength/tolerance for activity to enable patient to perform ADL's. OT Intermediate Goals Real Estate Coordinator Goals Time Frame: Nov 03, 2018 Eating (FIM): 6 Groomin Lower Body Dressing(FIM): 5 Toileting(FIM): 5 Transfers (B,C,W/C) (FIM): 5 Toilet/Commode Transfer(FIM): 5 Additional Goals: 1-Demonstrate ADL Tasks, 2-Verbalize Understanding, 3- ImproveStrength/Pravin 1=Demonstrate adherence to instructed precautions during ADL tasks. 2=Patient will verbalize/demonstrate understanding of assistive devices/modifications for ADL. 3=Patient will improve strength/tolerance for activity to enable patient to perform ADL's. OT Education/Plan Problem List/Assessment pt presents with functional limitations affecting areas of ADLs and functional transfers with deficits in the above mention. noted pt has strong right lateral lean both in sitting and stanidng along with severe retropulsive while standing and inability to self correct. pt would benefit from OT services to increase independence with ADLS and functional transfers. recommended d/c SNF Discharge Recommendations Plan/Recommendations: Continue POC Treatment Plan/Plan of Care Patient would benefit from OT for education, treatment and training to promote independence in ADL's, mobility, safety and/or upper extremity function for ADL's. Plan of Care: ADL Retraining, Caregiver Training, Functional Mobility, Group Exercise/Act as Ind, UE Funct Exercise/Act Treatment Duration: Nov 03, 2018 Frequency: 5 times per week Estimated Hrs Per Day: .25 hour per day Agreement: Yes Rehab Potential: Fair Time/GCodes Start Time: 08:23 Stop Time: 08:47 Total Time Billed (hr/min): 24 Billed Treatment Time 1 visit, ADLx2(24minutes) MILLI BETH OT Oct 14, 2018 11:26
--- NOTE | 2018-10-14 11:38 | NUR ---
CADY/DAVID spoke with the patient and Natalie (friend) to let them know that [facility] had a bed and could transport this day at 2pm. Natalie felt that was comfortable with the patient returning to the home with her and not to the facility. They are willing to consider Hospice for the patient now, asked Palliative Care RN to speak with them again. Let [facility] know that the patient would not be transferring to their facility. Natalie was wanting to refer to last visit when was not able to get a physician to write a letter to bump him up on the wait list. Patient refused HHC at discharge last visit. Addendum: 10/14/18 at 1150 by ALESSANDRO HERNANDEZ note on wrong patient-
[2018-10-14] MEDS: cefTRIAXone 1,000 MG/SWFI 10 ML IV PUSH IV SCH ×2 (11:39)
--- NOTE | 2018-10-14 11:50 | NUR ---
CM/SS spoke with [facility] and she will return there with [facility] PT/OT. They will transport this day at 2pm. RN and patient's niece Melissa were updated.
[2018-10-14 12:00] VITALS: BP 111/54
--- NOTE | 2018-10-14 13:30 | NUR ---
Report given to MISHA Yousif at [facility]. Discussed DC instructions.
== END 2018-10-14 11:12 ==
LOC: ER FS 09:54 → 4TH 12:37 → UNDOADMOB 12:37 → 4TH 14:50
PROVIDERS: ADMIT Internal Medicine; ATTEND Family Medicine
DX: R82.71 Bacteriuria (principal); R53.1 Weakness; R42 Dizziness and giddiness; R41.0 Disorientation, unspecified; R55 Syncope and collapse; R53.81 Other malaise; F41.9 Anxiety disorder, unspecified; F03.90 Unspecified dementia, unspecified severity, without behavioral disturbance, psychotic disturbance, mood disturbance, and anxiety; Z79.899 Other long term (current) drug therapy; Z79.52 Long term (current) use of systemic steroids
CPT/HCPCS: 36415; 51701; 70450; 71045; 80048; 80053; 81000; 83880; 84484; 85025; 87088; 93005; 96374; G0378